=== PATIENT | female | born 1985 | race Caucasian/White ===

== ENCOUNTER → 2016-05-09 | Outpatient (CLI) | payer BC, OTHER ==
[~2016-05-09] MED LIST: MONT1TAB3 PO; PRENTAB26 PO; SUPERCREAM EXT
[2016-05-09 16:52] LABS: URINE APPEARANCE CLEAR (CLEAR); URINE BILIRUBIN NEG (NEG); URINE COLOR DK YELLOW; URINE EPITHELIAL CELL AUTO >30 /lpf (0-5); URINE NITRITE NEG (NEG); URINE SPECIFIC GRAVITY 1.024 (1.000-1.030); UROBILINOGEN NEG (NEG)
[2016-05-09 16:55] LABS: MANUAL MICROSCOPIC REQUIRED? NO; REVIEW REQ? NO
== END | disposition home or self-care (01) ==
LOC: C.LABSPEC 15:59
PROVIDERS: ATTEND Obstetrics & Gynecology
DX: Z34.00 Encounter for supervision of normal first pregnancy, unspecified trimester (principal)

== ENCOUNTER → 2016-05-13 | Outpatient (CLI) | payer OTHER ==
[2016-05-17 01:34] LABS: CHLAMYDIA TRACH RNA*** NOT DETECTED (NOT DETECTED); GC (NEIS GONORRHOEAE)RNA** NOT DETECTED (NOT DETECTED)
== END | disposition home or self-care (01) ==
LOC: C.LABSPEC 17:23
PROVIDERS: ATTEND Obstetrics & Gynecology
DX: Z34.00 Encounter for supervision of normal first pregnancy, unspecified trimester (principal)

== ENCOUNTER → 2016-05-13 | Outpatient (CLI) | payer OTHER ==
[2016-05-13 16:38] LABS: BASO % 0.3 %; BASO ABS # 0.03 K/uL (0-0.2); COMPLETE YES; EOS % 0.6 %; HEMATOCRIT 39.1 % (37-47); IG% 0.1 %; LYMPH % 20.3 %; LYMPH ABS # 2.05 K/uL (1.2-3.4); MEAN CELL VOLUME 84.6 fL (80-100); MEAN CORPUSCULAR HEMOGLOBIN 29.4 pg (25-34); MEAN CORPUSCULAR HGB CONC 34.8 g/dl (32-36); MEAN PLATELET VOLUME 9.5 fL (7.4-10.4); MONO % 7.2 %; NEUT % 71.5 %; PLATELET COUNT 237 K/uL (130-400); RED BLOOD COUNT 4.62 M/uL (4.2-5.4); WHITE BLOOD COUNT 10.09 K/uL (4.8-10.8)
== END | disposition home or self-care (01) ==
LOC: C.LAB1850 15:30
PROVIDERS: ATTEND Obstetrics & Gynecology
DX: Z34.00 Encounter for supervision of normal first pregnancy, unspecified trimester (principal)

== ENCOUNTER → 2016-06-10 | Outpatient (CLI) | payer OTHER ==
[2016-06-10 13:01] LABS: GTGD 50 Grams
[2016-06-13 18:24] LABS: AFP CONCENTRATION 26.8 NG/ML; AFPTS GESTATIONAL AGE 16.4 WEEKS; AFPTS INSULIN DEP DIABETIC? NO; AFPTS MATERNAL WT 266 LBS; ALPHA-FETOPROTEIN RACE CAUCASIAN=W; HISTORY OF NTD NO; REPEAT SAMPLE? NO
== END | disposition home or self-care (01) ==
LOC: C.LAB1850 10:09
PROVIDERS: ATTEND Obstetrics & Gynecology
DX: Z34.02 Encounter for supervision of normal first pregnancy, second trimester (principal)

== ENCOUNTER → 2016-09-02 | Outpatient (CLI) | payer OTHER ==
[2016-09-02 15:39] LABS: HEMATOCRIT 37.1 % (37-47)
[2016-09-02 16:20] LABS: URINE APPEARANCE CLEAR (CLEAR); URINE BILIRUBIN NEG (NEG); URINE COLOR YELLOW; URINE EPITHELIAL CELL AUTO >30 /lpf (0-5); URINE NITRITE NEG (NEG); URINE PH 7.5 (4.5-7.5); URINE SPECIFIC GRAVITY 1.009 (1.000-1.030); UROBILINOGEN NEG (NEG)
[2016-09-02 16:22] LABS: MANUAL MICROSCOPIC REQUIRED? NO; REVIEW REQ? NO
[2016-09-02 18:13] LABS: GTGD 50 Grams
== END | disposition home or self-care (01) ==
LOC: C.LAB1850 13:41
PROVIDERS: ATTEND Obstetrics & Gynecology
DX: Z34.02 Encounter for supervision of normal first pregnancy, second trimester (principal)

== ENCOUNTER → 2016-10-13 | Outpatient (CLI) | payer OTHER ==
[2016-10-13 13:07] LABS: BASO % 0.2 %; BASO ABS # 0.02 K/uL (0-0.2); COMPLETE YES; HEMATOCRIT 38.4 % (37-47); IG% 0.4 %; LYMPH % 21.6 %; LYMPH ABS # 2.09 K/uL (1.2-3.4); MEAN CELL VOLUME 89.1 fL (80-100); MEAN CORPUSCULAR HEMOGLOBIN 29.2 pg (25-34); MEAN CORPUSCULAR HGB CONC 32.8 g/dl (32-36); MEAN PLATELET VOLUME 9.7 fL (7.4-10.4); MONO % 6.2 %; NEUT % 70.6 %; PLATELET COUNT 198 K/uL (130-400); RED BLOOD COUNT 4.31 M/uL (4.2-5.4); WHITE BLOOD COUNT 9.67 K/uL (4.8-10.8)
[2016-10-13 13:35] LABS: ALT/SGPT 71 U/L (12-78); AST/SGOT 37 U/L (15-37); CREATININE 0.53 mg/dl (0.60-1.20); URIC ACID 4.5 mg/dl (2.6-7.2)
== END | disposition home or self-care (01) ==
LOC: C.LAB1850 12:08
PROVIDERS: ATTEND Obstetrics & Gynecology
DX: O16.9 Unspecified maternal hypertension, unspecified trimester (principal); Z3A.00 Weeks of gestation of pregnancy not specified

== ENCOUNTER → 2016-10-21 | Outpatient (CLI) | payer OTHER ==
[2016-10-21 15:33] LABS: MEAN CELL VOLUME 88.8 fL (80-100); MEAN CORPUSCULAR HEMOGLOBIN 30.4 pg (25-34); MEAN CORPUSCULAR HGB CONC 34.2 g/dl (32-36); MEAN PLATELET VOLUME 10.2 fL (7.4-10.4); PLATELET COUNT 188 K/uL (130-400); RED BLOOD COUNT 4.28 M/uL (4.2-5.4); WHITE BLOOD COUNT 11.27 K/uL (4.8-10.8)
[2016-10-21 15:42] LABS: ALT/SGPT 82 U/L (12-78); AST/SGOT 48 U/L (15-37); BLOOD UREA NITROGEN 5 mg/dl (7-18); BUN/CREATININE RATIO 9.6 (10-20); CALCIUM 8.8 mg/dl (8.5-10.1); CARBON DIOXIDE 25 mmol/L (21-32); CHLORIDE 109 mmol/L (98-107); CREATININE 0.56 mg/dl (0.60-1.20); GLUCOSE 108 mg/dl (70-99); SODIUM 140 mmol/L (136-145)
[2016-10-21 15:45] LABS: ALB/GLOB RATIO 0.6 (0.9-2); ALKALINE PHOSPHATASE 116 U/L (45-117)
== END | disposition home or self-care (01) ==
LOC: C.LAB1850 14:22
PROVIDERS: ATTEND Obstetrics & Gynecology
DX: O13.3 Gestational [pregnancy-induced] hypertension without significant proteinuria, third trimester (principal); Z3A.00 Weeks of gestation of pregnancy not specified

== ENCOUNTER → 2016-10-24 | Outpatient (CLI) | payer OTHER ==
[2016-10-24 13:03] LABS: ALT/SGPT 80 U/L (12-78); AST/SGOT 44 U/L (15-37); BLOOD UREA NITROGEN 3 mg/dl (7-18); BUN/CREATININE RATIO 5.5 (10-20); CALCIUM 8.9 mg/dl (8.5-10.1); CARBON DIOXIDE 25 mmol/L (21-32); CHLORIDE 109 mmol/L (98-107); CREATININE 0.57 mg/dl (0.60-1.20); GLUCOSE 113 mg/dl (70-99); POTASSIUM 3.7 mmol/L (3.5-5.1); SODIUM 141 mmol/L (136-145)
[2016-10-24 13:06] LABS: ALB/GLOB RATIO 0.7 (0.9-2); ALKALINE PHOSPHATASE 116 U/L (45-117)
== END | disposition home or self-care (01) ==
LOC: C.LAB1850 11:26
PROVIDERS: ATTEND Obstetrics & Gynecology
DX: O13.3 Gestational [pregnancy-induced] hypertension without significant proteinuria, third trimester (principal)

== ENCOUNTER → 2016-10-28 | Outpatient (CLI) | payer OTHER ==
[2016-10-28 16:55] LABS: ALT/SGPT 80 U/L (12-78); AST/SGOT 47 U/L (15-37); BLOOD UREA NITROGEN 5 mg/dl (7-18); BUN/CREATININE RATIO 10.4 (10-20); CALCIUM 8.6 mg/dl (8.5-10.1); CARBON DIOXIDE 25 mmol/L (21-32); CHLORIDE 108 mmol/L (98-107); CREATININE 0.51 mg/dl (0.60-1.20); GLUCOSE 93 mg/dl (70-99); POTASSIUM 3.7 mmol/L (3.5-5.1); SODIUM 141 mmol/L (136-145)
[2016-10-28 16:57] LABS: ALB/GLOB RATIO 0.7 (0.9-2); ALKALINE PHOSPHATASE 124 U/L (45-117)
== END | disposition home or self-care (01) ==
LOC: C.LAB1850 15:20
PROVIDERS: ATTEND Obstetrics & Gynecology
DX: O13.3 Gestational [pregnancy-induced] hypertension without significant proteinuria, third trimester (principal)

== ENCOUNTER → 2016-10-31 | Outpatient (CLI) | payer OTHER ==
[2016-10-31 12:17] LABS: HEMATOCRIT 37.6 % (37-47); MEAN CELL VOLUME 88.9 fL (80-100); MEAN CORPUSCULAR HEMOGLOBIN 28.8 pg (25-34); MEAN CORPUSCULAR HGB CONC 32.4 g/dl (32-36); PLATELET COUNT 193 K/uL (130-400); RED BLOOD COUNT 4.23 M/uL (4.2-5.4); WHITE BLOOD COUNT 10.88 K/uL (4.8-10.8)
== END | disposition home or self-care (01) ==
LOC: C.LAB1850 10:18
PROVIDERS: ATTEND Obstetrics & Gynecology
DX: O13.3 Gestational [pregnancy-induced] hypertension without significant proteinuria, third trimester (principal); Z3A.00 Weeks of gestation of pregnancy not specified

== ENCOUNTER 2016-11-04 02:56 | Inpatient (IN) | payer OTHER ==
[~2016-11-04] VITALS: Ht 170.2 cm; Wt 135.5 kg
[2016-11-04] MEDS ORDERED: LACTATED RINGER'S 1000ML 1,000 ML IV PRN (07:57)
[2016-11-04] MEDS ORDERED: PENICILLIN G POTASSIUM IV 6 MU in DEXTROSE 5% 250ML 250 ML IV ONE (08:00)
[2016-11-04] MEDS ORDERED: LACTATED RINGER'S 1000ML 1,000 ML IV SCH (08:30)
[2016-11-04] MEDS ORDERED: PRENTAB26 PO (08:30)
[2016-11-04] MEDS ORDERED: MONT1TAB3 PO (08:30)
[2016-11-04 08:39] VITALS: Ht 170.2 cm; Wt 135.5 kg
[2016-11-04 08:50] LABS: HEMATOCRIT 34.8 % (37-47); MEAN CELL VOLUME 87.9 fL (80-100); MEAN CORPUSCULAR HEMOGLOBIN 30.1 pg (25-34); MEAN CORPUSCULAR HGB CONC 34.2 g/dl (32-36); MEAN PLATELET VOLUME 9.7 fL (7.4-10.4); PLATELET COUNT 169 K/uL (130-400); RED BLOOD COUNT 3.96 M/uL (4.2-5.4); WHITE BLOOD COUNT 9.12 K/uL (4.8-10.8)
[2016-11-04 09:11] LABS: BUN/CREATININE RATIO 9.7 (10-20); CALCIUM 8.7 mg/dl (8.5-10.1); CREATININE 0.6 mg/dl (0.60-1.20); POTASSIUM 3.7 mmol/L (3.5-5.1)
[2016-11-04 09:12] LABS: ALB/GLOB RATIO 0.6 (0.9-2)
[2016-11-04] MEDS ORDERED: LACTATED RINGER'S 1000ML 500 ML IV PRN ×2 (09:16→14:42)
[2016-11-04] MEDS ORDERED: OXYTOCIN 30 UNITS/500ML NSS IV PRN (09:30)
[2016-11-04] MEDS: PENICILLIN G POTASSIUM IV 3 MU in DEXTROSE 5% 100ML 100 ML IV PRN ×3 (12:41→20:40)
[2016-11-04] MEDS ORDERED: EpHEDrine SULFATE INJ 50 MG/ML AMP ONE (13:52)
[2016-11-04] MEDS ORDERED: BUPIVACAINE 0.25% 30 ML VIAL ONE (13:52)
[2016-11-04] MEDS ORDERED: FENTANYL CITRATE INJ 50 MCG/1 ML 2 ML VIAL ONE (13:53)
[2016-11-04] MEDS ORDERED: FENTANYL 2MCG/ML ROPIV 1.25MG/ML 100ML BAG EPI ONE (13:53)
[2016-11-04] MEDS ORDERED: NALOXONE HCL INJ 1 MG in SODIUM CHLORIDE 0.9% 1000ML 1,000 ML IV PRN (14:42)
[2016-11-04] MEDS ORDERED: NALOXONE HCL INJ 0.4 MG/1 ML VIAL/CARP IV PRN (14:45)
[2016-11-04] MEDS ORDERED: NALBUPHINE HCL INJ 10 MG/ML AMP IV PRN (14:45)
[2016-11-04] MEDS ORDERED: EpHEDrine SULFATE INJ 50 MG/ML AMP IV PRN (14:45)
[2016-11-04] MEDS ORDERED: ONDANSETRON INJ 2 MG/ML 2 ML VIAL IV PRN (14:45)
[2016-11-04] MEDS ORDERED: DiphenhydrAMINE HCL 50 MG/ML VIAL IV PRN (14:45)
[2016-11-04] MEDS: FENTANYL 2MCG/ML ROPIV 1.25MG/ML 100ML BAG EPI PRN ×2 (21:47→22:47)
[2016-11-05] MEDS: PENICILLIN G POTASSIUM IV 3 MU in DEXTROSE 5% 100ML 100 ML IV PRN (00:29)
[2016-11-05] MEDS ORDERED: BENZOCAINE 20% AER SPR 82.5 GM CAN EXT PRN (02:00)
[2016-11-05] MEDS ORDERED: SUPERCREAM 0.870 % 15GM JAR EXT PRN (02:00)
[2016-11-05] MEDS ORDERED: OXYCODONE/ACETAMINOPHEN 5-325 TAB PO PRN (02:00)
[2016-11-05] MEDS ORDERED: HYDROCORTISONE ACETATE 25 MG SUPP PR PRN (02:00)
[2016-11-05] MEDS ORDERED: OXYTOCIN 30 UNITS/500ML NSS IV PRN (02:00)
[2016-11-05] MEDS ORDERED: LANOLIN OINT EXT PRN ×2 (02:00)
[2016-11-05] MEDS: IBUPROFEN 600 MG TAB PO PRN ×5 (02:56→20:51)
--- NOTE | 2016-11-05 03:14 | DELIVERY SUMMARY ---
DATE OF OPERATION: 11/05/2016 DELIVERING SURGEON: Diane Shukla DO PREDELIVERY DIAGNOSES: 1. A 31-year-old 1, para 0 at 37 weeks 3 days. 2. Induction of labor secondary to gestational hypertension. 3. Group B streptococcus positive. 4. Morbid obesity. 5. Polycystic ovary syndrome. POSTDELIVERY DIAGNOSES: Same. PROCEDURE: Spontaneous vaginal delivery and repair of second degree perineal laceration. ANESTHESIA: Epidural. ESTIMATED BLOOD LOSS: 300 mL. FINDINGS: Viable female with Apgars 9 and 9, weight pending. Please see nursery records. DESCRIPTION OF DELIVERY: The patient progressed to complete with epidural anesthesia, she then began to push. She spontaneously vaginally delivered a viable female from the cephalic presentation in left occiput anterior position. The head delivered followed by the anterior and posterior shoulders simultaneously. The baby was placed in mother's abdomen. The cord was doubly clamped and cut. Cord blood was obtained for public cord blood banking. The placenta was then delivered spontaneously intact with a 3-vessel cord. Pitocin was given and the uterus and vagina were swept of all clots and debris. The uterus became firm. The cervix, vagina and perineum were inspected and a second degree laceration was noted, this was repaired in standard fashion with 3-0 Vicryl. The anal sphincter was not entered; however, the surrounding tissue was traumatized, therefore I placed a single [id number] stitch of 3-0 chromic to support the anal sphincter. The patient and baby tolerated the procedure well. Excellent hemostasis was observed. Sponge, instrument and needle counts were correct x2 at the conclusion of the delivery. I attest to the content of the Intraoperative Record and any orders documented therein. Any exception s are noted below.
[2016-11-05 03:30] VITALS: BP 137/70; PULSE 97; TEMP 37.3
--- NOTE | 2016-11-05 04:01 | Anesthesia Procedure Note ---
Anesthesia Epidural Removal Nt Date & Time Nov 05, 2016 at 04:01 Vital Signs Pain Intensity: 6.0 Notes Mental Status: alert / awake / arousable, participated in evaluation Nausea / Vomiting: adequately controlled Pain: adequately controlled Airway Patency, RR, SpO2: stable & adequate BP & HR: stable & adequate Hydration State: stable & adequate Neuraxial Anesthesia: was administered, sensory block is resolving Anesthetic Complications: no major complications apparent, pt satisfied with anesthetic care Epidural: removed without complications, with tip intact
[2016-11-05 08:00] VITALS: BP 109/72; PULSE 91; TEMP 36.6
[2016-11-05] MEDS: DOCUSATE SODIUM 100 MG CAP PO SCH ×2 (08:23→20:49)
[2016-11-05] MEDS: ACETAMINOPHEN 325 MG TAB PO PRN ×3 (10:14→19:07)
[2016-11-05 12:18] VITALS: BP 125/85; PULSE 85; TEMP 36.7
[2016-11-05 15:30] VITALS: BP 121/83; PULSE 90; TEMP 36.5
[2016-11-05 19:30] VITALS: BP 128/86; PULSE 90; TEMP 36.4
[2016-11-05 23:00] VITALS: BP 106/71; PULSE 91; TEMP 36.7
[2016-11-06] MEDS: IBUPROFEN 600 MG TAB PO PRN ×4 (03:55→17:45)
[2016-11-06] MEDS: ACETAMINOPHEN 325 MG TAB PO PRN ×4 (03:57→19:52)
[2016-11-06 06:40] LABS: HEMATOCRIT 31.5 % (37-47)
[2016-11-06 07:50] VITALS: BP 113/78; PULSE 96; TEMP 36.7
[2016-11-06] MEDS: DOCUSATE SODIUM 100 MG CAP PO SCH ×2 (07:59→19:31)
--- NOTE | 2016-11-06 08:20 | Progress Note ---
Subjective Nov 06, 2016. Subjective conversation w/ patient, physical exam, chart review, lab review Ambulation: ambulating normally Voiding: no voiding problems Diet Tolerance: Regular Diet Lochia: Small Feeding Type: Breast Feeding Objective Vital Signs Date Time Temp Pulse Resp B/P (MAP) Pulse Ox O2 Delivery O2 Flow Rate FiO2 11/05/16 23:00 36.7 91 18 106/71 (83) Room Air 11/05/16 23:00 Room Air 11/05/16 19:30 36.4 90 20 128/86 (100) Room Air 11/05/16 15:30 Room Air 11/05/16 15:30 36.5 90 20 121/83 (96) Room Air 11/05/16 12:18 36.7 85 20 125/85 (98) Physical Exam General Appearance: WELL-APPEARING Abdomen: non tender Fundus: Firm Extremities: no calf tenderness Laboratory Results Last 24 Hours Test 11/06/16 06:25 Hemoglobin 10.5 g/dL Hematocrit 31.5 % Assessment and Plan Post- Day#: 1 Continue Routine Care: BENJAMIN
--- NOTE | 2016-11-06 08:36 | Discharge Instructions ---
Discharge Instructions Date of Service Nov 06, 2016. Admission Reason for Admission: Induction Discharge Discharge Diagnosis / Problem: Discharge Goals Goal(s): Routine recovery after delivery Activity Recommendations Activity Limitations: per Instructions/Follow-up section . Instructions / Follow-Up Instructions / Follow-Up ACTIVITY RECOMMENDATIONS: * Gradual return to full activity over the next 2-3 weeks. * No lifting - nothing heavier than baby over the next 2-3 weeks. * Do not engage in vigorous exercise, sexual activity or sports until cleared by your physician. * Do not drive or operate any motorized equipment until cleared by your physician. * You may shower/bathe daily. MEDICATIONS: For discomfort or pain, you may use Acetaminophen (Tylenol), Ibuprofen (Advil), or Naproxen (Aleve) following the package directions. For constipation you may use Colace following the package directions. BREAST CARE: If you are not breast feeding: * Wear a supportive bra 24 hours a day for one to two weeks. * Avoid stimulating your breasts and nipples as much as possible during the first few weeks after delivery. * When taking a shower, have the warm water hit your back, not breasts. * When your breasts feel full, apply ice packs. Usually three to four times a day helps ease the discomfort. * Take a mild pain medication (Tylenol / Motrin) when you are uncomfortable. If breast feeding: * Use breast milk to lubricate nipples. Lansinoh cream may be used for sore nipples. You do not need to remove cream prior to breast feeding. If using a different brand of cream, check the label for directions regarding removal of cream prior to nursing. * Wear a supportive bra. * If having problems with breasts or breast feeding, call a it architecture consultant or your health care provider. EPISIOTOMY CARE: After delivery, if you have an episiotomy (stitches), the following steps will ease discomfort and aid healing. * For the first 24 hours after delivery, place ice packs next to your episiotomy to help reduce swelling. * After the first 24 hour-period, sitz baths, either portable or in the tub, are suggested. A shower with a shower arm sprayed over the episiotomy may be comforting. * Blanca care should be done after each voiding and bowel movement. Squirt warm water from a plastic bottle over the perineum (region of the body between the anus and urinary opening) and pat dry. * Use Dermoplast to ease discomfort. Shake container. [place] directly over the episiotomy. Place a Tucks on a clean sanitary pad next to your episiotomy. SPECIAL CARE INSTRUCTIONS: When you are discharged from the hospital, it is important for you to follow the instructions listed below: * During the first week at home, you should be able to care for yourself and your baby. In addition, the usual light household activities are encouraged. * Limit your activities to the way you feel. Do not try to clean the house or move furniture. Be sensible. * If you actively engage in sports and have done so up until the time of your delivery, you may resume these activities as soon as you feel able. This may take up to one month or even longer. Use good judgment. * Continue to take your vitamins for at least six weeks after the of your baby. * Your diet need not be limited unless you were on a special diet before your delivery. Breast-feeding mothers need around 2500 calories per day and at least 64-80 ounces of fluid per day (8 to 10 glasses). * You should eat foods from the four major food groups. Crash diets or fad diets are to be avoided. Eating lean meats, fresh fruits and vegetables, low-fat dairy products, high fiber foods and a regular exercise program, will help you get back to your pre- weight without putting your health at risk. * Constipation is sometimes a problem after delivery. Take a mild laxative as needed. If breast feeding, Milk of Magnesia is acceptable to use. You may use a suppository or Fleets enema if no episiotomy. * A daily shower or tub bath is suggested. Be sure to thoroughly and gently dry the perineum. * A bloody vaginal discharge will usually continue until around four weeks post . A small amount of bleeding may continue for as long as six weeks. Vaginal discharge changes from the bright red bleeding after delivery to pink then brownish and finally yellowish-pink before becoming white and disappearing. * Bleeding may increase with activity. Your first period may come in 4-8 weeks. If you are breast feeding, your period may be delayed even longer. * [place] (sex) can begin whenever both you and your partner feel comfortable and do not have any form of genital infection. It is recommended that you wait at least six weeks for internal and external healing to occur. If you have questions, please talk to your health care practitioner. A condom should be used to prevent infection and . * Foreplay, gentle intercourse and lubrication is very important the first several times to prevent pain. A water-based lubricant such as K-Y jelly or Astroglide may be used. * If you have RH negative blood and your baby is RH positive, you will receive RHOGAM by injection prior to discharge. The nurse will give you a card to keep with you that has the date and place that you received RHOGAM after delivery. * During your care, you had a Rubella screen done to check for the presence of rubella antibodies in your blood. If your test was negative, you will receive a Rubella vaccine prior to discharge. This vaccine may cause a fever, soreness at the injection site and flu-like symptoms. If these symptoms persist, notify your health care practitioner. is not advised for one month after a Rubella vaccine. * Verbalizes understanding of car seat law as reviewed with patient nursing. * Car Seat hand-out given and reviewed with patient by nursing. * Shaken baby information reviewed with patient by nursing. Call you doctor if: * Heavy bleeding (saturating several pads an hour) or passing clots the size of your fist. * A fever >101 degrees F (38.3 degrees C) on two occasions four hours apart and /or chills. * Unusual pain in the pelvic or vaginal areas. * "Baby Blues" lasting longer than two weeks. If you have any questions or concerns, call your health care practitioner at . FOLLOW UP VISIT: * Please call the office at to schedule a 6 week examination. It is important you keep this appointment. It is important for you to make arrangements for either yearly or twice yearly check-ups thereafter. Current Hospital Diet Patient's current hospital diet: Regular OB Diet Discharge Diet Recommended Diet: Regular OB Diet Pending Studies Studies pending at discharge: no Medical Emergencies . Who to Call and When: Medical Emergencies: If at any time you feel your situation is an emergency, please call 911 immediately. . Non-Emergent Contact Non-Emergency issues call your: Research Intern . . "Provider Documentation" section prepared by Jordy Thapa. . VTE Core Measure Inpt VTE Proph given/why not?: Treatment not indicated
[2016-11-06 12:45] VITALS: BP 133/83; PULSE 96; TEMP 36.7
[2016-11-06 15:15] VITALS: BP 116/63; PULSE 91; TEMP 36.7
[2016-11-06 19:30] VITALS: BP 133/88; PULSE 94; TEMP 37.3
[2016-11-06] MEDS ORDERED: BISACODYL 5 MG TABEC PO SCH (20:00)
[2016-11-06 23:15] VITALS: BP 116/81; PULSE 82; TEMP 36.6; O2SAT 98
[2016-11-07] MEDS: IBUPROFEN 600 MG TAB PO PRN ×2 (01:43→08:24)
[2016-11-07] MEDS: ACETAMINOPHEN 325 MG TAB PO PRN (05:11)
--- NOTE | 2016-11-07 06:04 | OB/GYN Progress Note ---
[employer] Progress Note Date of Service Nov 07, 2016. Subjective conversation w/ patient, physical exam, chart review Ambulation: ambulating normally Voiding: no voiding problems Diet Tolerance: Regular Diet Lochia: Small Feeding Type: Breast Feeding Pain: 2/10 controlled with pain meds Review of Systems Constitutional: No fever Respiratory: No shortness of breath Cardiac: No chest pain Abdomen: No nausea, No vomiting Female : No dysuria Objective Vital Signs Date Time Temp Pulse Resp B/P (MAP) Pulse Ox O2 Delivery O2 Flow Rate FiO2 11/06/16 23:15 98 Room Air 11/06/16 23:15 36.6 82 18 116/81 (93) 98 Room Air 11/06/16 19:30 37.3 94 18 133/88 (103) Room Air 11/06/16 15:15 Room Air 11/06/16 15:15 36.7 91 18 116/63 (80) Room Air 11/06/16 12:45 36.7 96 16 133/83 (100) 11/06/16 07:50 36.7 96 20 113/78 (90) Physical Exam General Appearance: WELL-APPEARING Respiratory/Chest: lungs clear, normal breath sounds, no respiratory distress Cardiovascular: regular rate, rhythm Abdomen: normal bowel sounds, non tender, soft Fundus: Firm, Relation to Umbilicus (1 finger breaths below) Extremities: non-tender, + pedal edema (1+) Laboratory Results Last 24 Hours Test 11/06/16 06:25 Hemoglobin 10.5 g/dL Hematocrit 31.5 % Medications Current Inpatient Medications Medications (Trade) Dose Ordered Sig/Kacy Route Start Time Stop Time Status Last Admin Dose Admin Oxytocin (Pitocin IV) 30 units UD PRN IV 11/05/16 02:00 12/05/16 01:59 Benzocaine (Dermoplast Aero Spr) 1 appln PRN PRN EXT 11/05/16 02:00 12/05/16 01:59 11/05/16 10:10 1 APPLN Cocaine HCl (Supercream 0.870% Cr) BID PRN EXT 11/05/16 02:00 11/19/16 01:59 11/05/16 16:27 15 GM Hydrocortisone Acetate (Anusol Hc Supp) 25 mg BID PRN ME 11/05/16 02:00 12/05/16 01:59 Lanolin (Lanolin Oint) PRN PRN EXT 11/05/16 02:00 12/05/16 01:59 11/05/16 21:04 1 TUBE Ibuprofen (Motrin Tab) 600 mg Q4H PRN PO 11/05/16 02:00 12/05/16 01:59 11/07/16 01:43 600 MG Oxycodone/ Acetaminophen (Percocet 5-325mg Tab) 1 tab Q4H PRN PO 11/05/16 02:00 11/19/16 01:59 11/05/16 04:31 1 TAB Docusate Sodium (coLACE CAP) 100 mg BID PO 11/05/16 08:00 12/05/16 07:59 11/06/16 19:31 100 MG Acetaminophen (Tylenol Tab) 650 mg Q6H PRN PO 11/05/16 09:30 12/05/16 09:29 11/07/16 05:11 650 MG Assessment and Plan Post- Day Number: 2 Continue Routine Care: A/P: This is a 31 y/o female, , PPD#2 s/p induced normal vaginal delivery. She is ambulating and clinically stable to discharge. - Vital signs are reviewed and WNL (Tmax 36.7) - Last Hgb 10.5 (11/06) - Blood type A+, GBS pos, Rubella Immune - No signs of depression. - Routine care - Discussed resting, feeding, pain control, mastitis, control, follow up in 6 weeks and reasons to call sooner, if necessary. - Continue with pain medication as needed, and continue vitamins. - Encourage breast feeding and educate about breast feeding - Patient understands and keen for home. - Plan to discharge home Resident Physician Supervision Note: I interviewed and examined the patient. Discussed with Dr. Nix and agree with findings and plan as documented in the note. Any exceptions or clarifications are listed here: [None] Documented By: Jordy Thapa Resident Involvement: Resident Care Provided Care Provided: OB Delivery
[2016-11-07] MEDS ORDERED: SUPERCREAM EXT (07:36)
[2016-11-07 07:44] VITALS: BP 120/77; PULSE 82; TEMP 36.5; O2SAT 99
[2016-11-07] MEDS ORDERED: SUPERCREAM 0.870 % 15GM JAR EXT PRN (07:45)
[2016-11-07] MEDS: DOCUSATE SODIUM 100 MG CAP PO SCH (08:23)
== END 2016-11-07 13:15 | disposition home or self-care (01) | DRG 775 ==
LOC: C.LD 07:44 → C.OBG 11-05 03:57
PROVIDERS: ADMIT Obstetrics & Gynecology; ATTEND Obstetrics & Gynecology
PROC: 4A1HXFZ Monitoring of Products of Conception, Cardiac Rhythm, External Approach (ICD-10-PCS; principal; 2016-11-05)
PROC: 10E0XZZ Delivery of Products of Conception, External Approach (ICD-10-PCS; principal; 2016-11-05)
PROC: 0KQM0ZZ Repair Perineum Muscle, Open Approach (ICD-10-PCS; principal; 2016-11-05)
DX: O13.4 Gestational [pregnancy-induced] hypertension without significant proteinuria, complicating childbirth (principal); Z68.42 Body mass index [BMI] 45.0-49.9, adult; O99.213 Obesity complicating pregnancy, third trimester; E66.01 Morbid (severe) obesity due to excess calories; O99.824 Streptococcus B carrier state complicating childbirth; O99.89 Other specified diseases and conditions complicating pregnancy, childbirth and the puerperium; O34.83 Maternal care for other abnormalities of pelvic organs, third trimester; E28.2 Polycystic ovarian syndrome; J30.2 Other seasonal allergic rhinitis; O70.1 Second degree perineal laceration during delivery; Z3A.37 37 weeks gestation of pregnancy; Z37.0 Single live birth

== ENCOUNTER → 2016-12-22 | Outpatient (CLI) | payer OTHER | END | disposition home or self-care (01) | LOC: C.PAPS 14:26 | PROVIDERS: ATTEND Obstetrics & Gynecology | DX: Z39.2 Encounter for routine postpartum follow-up (principal) ==

== ENCOUNTER 2017-08-25 07:55 | Emergency (ER) | payer OTHER ==
[~2017-08-25] VITALS: Ht 170.2 cm; Wt 126.4 kg
[2017-08-25 08:04] VITALS: TEMP 37.2; Ht 170.2 cm; Wt 126.4 kg
[2017-08-25] MEDS ORDERED: PROPARACAINE HCL 0.5% OP SOLN 15 ML BTL ONE (08:11)
[2017-08-25] MEDS ORDERED: CIPROFLOXACIN HCL 0.3% OP SOLN 2.5 ML BTL OP ONE (09:00)
[2017-08-25 09:05] VITALS: BP 139/98; PULSE 90; O2SAT 100
--- NOTE | 2017-08-25 09:07 | EMERGENCY ROOM VISIT NOTE ---
ED Visit Note First contact with patient: 08:07 CHIEF COMPLAINT: Right eye redness, swelling and discharge since yesterday afternoon HISTORY OF PRESENT ILLNESS: Patient is a 32-year-old female who presents emergency department accompanied by her for evaluation of pain, swelling and redness in the right eye. Her symptoms started yesterday mid morning, about 24 hours ago. She noted some drainage from the eye. She called her doctor's office and was called in a prescription for sulfacetamide drops which she has been taking with no relief. She notes increasing eye redness, drainage and discharge. Her eye was matted shut this morning. She also notes some swelling of the eyelids and into her cheek. She thought that the symptoms worsening were related to an allergic reaction to the eyedrop, so she stopped using them, and took Benadryl. She denies any other upper respiratory symptoms including cough, nasal drainage or sore throat. She does note some slight blurry vision and sensitivity to light in the right eye only. She has a mild throbbing headache around her right eye. She rates her discomfort a 3/10. She does not wear glasses or contact lenses. She does have a 9-month-old daughter in daycare, but there is no one ill with similar symptoms that she is aware of. REVIEW OF SYSTEMS: Review of systems as per HPI. All other systems reviewed were negative. 10 systems reviewed. PMH: Electronic medical records are reviewed and summarized as above/below. See Problem List. SOCIAL HISTORY: Patient lives at home with her family. Non-smoker. PHYSICAL EXAM: Vital Signs: Reviewed Nurse's notes. VISUAL ACUITY: 20/20 in the right eye, 20/15 in the left eye without correction. SKIN: Warm, dry. No cyanosis. No petechia. EYE(S): Both pupils equal and reactive, EOMs full. Examination of the right eye notes severe conjunctival injection with chemosis, and mucopurulent drainage is present. She has some mild soft tissue swelling of the right upper eyelid, and some fullness in the soft tissue inferior to the right eye, but no overt discoloration, increased warmth, induration or cellulitic changes. Slit- lamp examination did not note any hyphema or foreign body on the cornea. No uptake of fluorescein visible with UV light. ENT: Tympanic membranes intact, with normal landmarks. External canals are clear. Oral and nasopharynx are clear. Mucous membranes are moist. NECK: No lymphadenopathy noted. EMERGENCY DEPARTMENT COURSE: The patient was seen and assessed as above. She has a fairly significant right-sided conjunctivitis. She has some soft tissue swelling in the periorbital space, but exam is not consistent with a preseptal or a periorbital cellulitis. I suspect an infectious source, however there could be an allergic response to the eyedrop as well. Nonetheless, she will discontinue the sulfacetamide drops, and be placed on Ciloxan which were instilled in the emergency department. Continued conservative care measures were discussed. The patient was educated on the worrisome signs or symptoms for which she should return to the emergency department for further evaluation. She expressed understanding of this and was agreeable. She is discharged home with her in good condition. Medication reconciliation: I attest that I have personally reviewed the patient' s current medication list. Blood pressure screening: Patient was found to have a slightly elevated blood pressure due to circumstances. I do not believe that the patient requires hypertension monitoring. Problem List Medical Problems: (1) 37 weeks gestation of Status: Resolved (2) Asthma Status: Chronic (3) Gestational hypertension Status: Resolved (4) Polycystic Ovarian Syndrome Status: Chronic Current/Historical Medications Scheduled Ciprofloxacin Hcl (Ophth) (Ciloxan Oph), 2 DROP OPR Q4H Fexofenadine-Pseudoephedrine (Sherin-D 24 Hour Allergy), 1 TAB PO DAILY Montelukast Sodium (Singulair), 1 TAB PO DAILY Scheduled PRN Albuterol Hfa (Ventolin Hfa), 2-4 PUFFS INH Q6H PRN for SOB/Wheezing Allergies Coded Allergies: Molds and Smuts (Verified Allergy, Severe, itchiness, 08/25/17) POLLEN (Verified Allergy, Severe, itchiness, 08/25/17) Sulfacetamide (Unverified Allergy, Severe, SWELLING OF EYE, 08/25/17) *THIS WAS AN EYE DROP* Tree Extract (Verified Allergy, Severe, itchiness, 08/25/17) Animal Dander (Verified Allergy, Intermediate, itchiness, 08/25/17) Cantaloupe (Verified Allergy, Intermediate, ANAPHYLAXIS, 08/25/17) throat itching/swelling Honeydew [place] (Verified Allergy, Intermediate, ANAPHYLAXIS, 08/25/17) throat itching/swelling Watermelon (Verified Allergy, Intermediate, ANAPHYLAXIS, 08/25/17) throat itching/swelling Vital Signs Date Time Temp Pulse Resp B/P (MAP) Pulse Ox O2 Delivery O2 Flow Rate FiO2 08/25/17 09:05 90 20 139/98 100 08/25/17 08:04 37.2 94 20 151/99 98 Room Air Medications Administered Medications (Trade) Dose Ordered Sig/Kacy Route Start Time Stop Time Status Last Admin Dose Admin Proparacaine HCl (Alcaine 0.5% Oph Soln) 225 drops STK-MED ONCE .ROUTE 08/25/17 08:11 08/25/17 08:12 DC 08/25/17 08:11 225 DROPS Ciprofloxacin HCl (Ciprofloxacin 0.3% Op Soln) 2 drops Q4H ONCE OP 08/25/17 09:00 08/25/17 09:03 DC 08/25/17 09:15 2 DROPS Departure Information Impression Primary Impression: Acute conjunctivitis, right eye Prescriptions Ciprofloxacin Hcl (Ophth) (CILOXAN OPH) 0.3 % Selam 2 DROP OPR Q4H, #1 BTL Prov: Vicky Jarvis PA 08/25/17 Referrals No Doctor, Assigned (PCP) Patient Instructions My [facility] Additional Instructions Ciloxin drops : 2 antibiotic eyedrops in the right eye every 2 hours while awake for 24 hours, then every 4 hours while awake for a total of 5-7 days. Ibuprofen(Motrin, Advil) may be used for fever or pain. Use 600mg every six hours as needed. Take with food. Avoid using more than 2400mg in a 24 hour period. Do not use 2400mg per day for more than three consecutive days without physician direction. Prolonged inappropriate use can lead to stomach upset or ulcers. (AND/OR) Acetaminophen(Tylenol) may be used for fever or pain. Use 1000mg every six hours as needed. Avoid using more than 3000mg in a 24 hour period. You may also intermittently apply a cool compress for relief. Warm washcloth for crusting and matting. Return to the ED for worsening pain, increasing redness/facial swelling, fevers , vomiting or changes in vision.
[2017-08-25] MEDS ORDERED: VNTHFA/IN INH (09:10)
[2017-08-25] MEDS ORDERED: FEXO1TAB58 PO (09:10)
[2017-08-25] MEDS ORDERED: CIPR0.3S OPR (09:19)
== END 2017-08-25 09:20 | disposition home or self-care (01) ==
LOC: C.EDB 07:58
DX: H10.31 Unspecified acute conjunctivitis, right eye (principal); J45.909 Unspecified asthma, uncomplicated; E28.2 Polycystic ovarian syndrome; Z91.018 Allergy to other foods

== ENCOUNTER 2018-10-25 14:22 | Inpatient (IN) ==
--- OUTSIDE RECORDS SUMMARY | 2018-10-25 14:25 | External Medical Summary | Continuity of Care Document ---
:1985 Author Name Brandie Vincent, Provider Address Unavailable Unavailable , Care Team Providers Name Role Phone Unavailable Unavailable Unavailable PCP, NO Unavailable Unavailable Unavailable Unavailable Unavailable Problems Chronic allergic conjunctivitis (372.14) (H10.45) Allergic rhinitis (477.9) (J30.9) Polycystic ovarian syndrome (256.4) (E28.2) Encounter for supervision of normal preg johnny in multigravida in third trimester (V22.1) (Z34.83) Obesity affecting in third trimester (649.13) (O99 .213) Nausea and vomiting in (643.90) (O21.9) GBS (group B streptococcus) UTI complicating (646. 60) (O23.40) Morbid obesity (278.01) (E66.01) History of gestational hypertension (V13.29) (Z87.59) Allergies and Adverse Reactions Sulfa Drugs (Allergy) Animal dander (Allergy) Animal dander - Cats (Allergy) Mold (Allergy) Pollen (Allergy) Trees (Allergy) Medications TABS , M.D. Refills: 0 Aspirin 81 MG TABS , M.D. Refills: 0 Singulair TABS , M.D. Refills: 0 Procedures History of Tonsillectomy With Adenoidectomy Status: Completed History of Oral Surgery Tooth Extraction Status: Completed Immunizations Influenza On: 13-Apr-2012 13:44 Lot #: [id number], [employer] Tdap (Adacel) On: 16-Sep-2016 11:13 Lot #: [id number], [employer] PA[employer]UR Influenza On: 31-Jan-2018 Tdap (Adacel) On: 28-Aug-2018 10:51 Lot #: [id number], [employer] PA[employer]UR Family History Unknown Family Member Family history of Allergic Rhinitis Status: Active Comm ents: Family History Mother Family history of lung cancer (V16.1) (Z80.1) Status: Active Grandmother Family history of malignant neoplasm of breast (V16.3) (Z80. 3) Status: Active Plan of Treatment Planned Observations Planned Goals not documented Results No Known Results Results not documented Vital Signs 18-Oct-2018 15:06 Systolic 138 mm[Hg] Diastolic 84 mm[Hg] Height 67 in BMI Calculated 46.24 kg/m2 Weight 295.2 lb BSA Calculated 2.39 m2 08-Oct-2018 11:11 Systolic 136 mm[Hg] Diastolic 78 mm[Hg] Height 67 in BMI Calculated 45.67 kg/m2 Weight 291.6 lb BSA Calculated 2.37 m2 26-Sep-2018 11:20 Systolic 136 mm[Hg] Diastolic 78 mm[Hg] Height 67 in BMI Calculated 45.83 kg/m2 Weight 292.6 lb BSA Calculated 2.38 m2 Encounters Appointment; Katy Glass M.D. 18-Oct-2018 15:10 Encounter Diagnosis: Problem not documented Appointment; Diane Shukla DO 08-Oct-2018 11:00 Encounter Diagnosis: Problem not documented Appointment; Elizabeth Valladares M.D. 26-Sep-2018 11:50 Encounter Diagnosis: Problem not documented Appointment; OBGYN SC2, Ultrasound 26-Sep-2018 11:00 Encounter Diagnosis: Problem not documented Appointment; Augie Thapa M.D. 10-Sep-2018 9:50 Encounter Diagnosis: Problem not documented Appointment; Hima Mchugh M.D. 28-Aug-2018 10:30 Encounter Diagnosis: Problem not documented Appointment; Augie Thapa M.D. 30-Jul-2018 10:20 Encounter Diagnosis: Problem not documented Appointment; OBGYN SC2, Ultrasound 30-Jul-2018 9:30 Encounter Diagnosis: Problem not documented Appointment; Ye Nugent M.D. 02-Jul-2018 10:30 Encounter Diagnosis: Problem not documented Appointment; OBGYN SC2, Ultrasound 02-Jul-2018 9:30 Encounter Diagnosis: Problem not documented Appointment; Diane Shukla DO 31-May-2018 15:30 Encounter Diagnosis: Problem not documented Appointment; Isabel Madison M.D. 11-May-2018 9:00 Encounter Diagnosis: Problem not documented Appointment; OB SC1, Procedure Rm 09-Apr-2018 8:20 Encounter Diagnosis: Problem not documented Appointment; Isabel Madison M.D. 09-Apr-2018 8:20 Encounter Diagnosis: Problem not documented Appointment; OB SC1, Nursing Station 06-Apr-2018 8:45 Encounter Diagnosis: Problem not documented Appointment; Diane Shukla DO 22-Dec-2016 11:20 Encounter Diagnosis: Problem not documented Appointment; Diane Shukla DO 03-Nov-2016 15:30 Encounter Diagnosis: Problem not documented Appointment; OB SC1, Nonstress Test 03-Nov-2016 15:00 Encounter Diagnosis: Problem not documented Appointment; OB SC1, Nonstress Test 31-Oct-2016 8:30 Encounter Diagnosis: Problem not documented Appointment; Elizabeth Valladares M.D. 28-Oct-2016 14:20 Encounter Diagnosis: Problem not documented Appointment; OB SC1, Nonstress Test 28-Oct-2016 13:50 Encounter Diagnosis: Problem not documented Appointment; OB SC1, Nonstress Test 25-Oct-2016 15:30 Encounter Diagnosis: Problem not documented
[2018-10-25] MEDS ORDERED: OXYTOCIN 30 UNITS/500 ML BAG IV PRN ×2 (15:08→20:43)
[2018-10-25] MEDS ORDERED: PENICILLIN G POTASSIUM 3 MU in DEXTROSE 5% 100 ML IV PRN (15:08)
[2018-10-25] MEDS ORDERED: LACTATED RINGER'S 1,000 ML IV PRN (15:08)
[2018-10-25 15:30] LABS: Hematocrit (blood only) 35.1 % (37-47); Hemoglobin 11.7 g/dL (12.0-16.0); Mean Corpuscular Volume 84.8 fL (80-100); Mean Platelet Volume 9.4 fL (7.4-10.4); Platelet Count 170 K/uL (130-400); RDW Coefficient of Variation 13.7 % (11.5-14.5); RDW Standard Deviation 42.2 fL (36.4-46.3); Red Blood Count 4.14 M/uL (4.2-5.4); White Blood Count 11.42 K/uL (4.8-10.8)
[2018-10-25] MEDS ORDERED: PENICILLIN G POTASSIUM 6 MU in DEXTROSE 5% 250 ML IV ONE (15:30)
[2018-10-25] MEDS ORDERED: BUPIVACAINE 0.25% 30 ML VIAL ONE (15:35)
[2018-10-25] MEDS ORDERED: ePHEDrine sulfate 50 MG/ML AMP ONE (15:35)
[2018-10-25 15:36] LABS: Mean Corpuscular Hgb Conc 33.3 g/dL (32-36)
[2018-10-25] MEDS ORDERED: fentaNYL 2MCG/ML ROPIV 1.25MG/ML 100 ML BAG EPI ONE (15:36)
[2018-10-25] MEDS ORDERED: fentaNYL citrate 100 MCG/2 ML VIAL ONE (15:36)
[2018-10-25] MEDS ORDERED: NALOXONE HCL 1 MG in SODIUM CHLORIDE 0.9% 1000ML 1,000 ML IV PRN (16:39)
[2018-10-25] MEDS ORDERED: fentaNYL 2MCG/ML ROPIV 1.25MG/ML 100 ML BAG EPI PRN (16:39)
[2018-10-25] MEDS ORDERED: NALBUPHINE HCL INJ 10 MG/ML AMP IV PRN (16:39)
[2018-10-25] MEDS ORDERED: NALOXONE HCL 0.4 MG/1 ML VIAL/CARP IV PRN (16:39)
[2018-10-25] MEDS ORDERED: ePHEDrine sulfate 50 MG/ML AMP IV PRN (16:39)
[2018-10-25] MEDS ORDERED: DiphenhydrAMINE HCL 50 MG/ML VIAL IV PRN (16:39)
--- NOTE | 2018-10-25 16:39 | Anesthesiology Consultation ---
Date of Service October 25, 2018 Assessment & Plan Chart Review Chart Review: Acceptable Risk for Labor Epidural Consults Requested none History Height/Weight Height: 5 ft 7 in Weight: 133.81 kg Allergies Allergy/AdvReac Type Severity Reaction Status Date / Time mold Allergy Severe itchiness Verified 08/25/17 09:04 pollen extracts Allergy Severe itchiness Verified 08/25/17 09:04 sulfacetamide Allergy Severe SWELLING Unverified 08/25/17 09:04 OF EYE animal dander Allergy Intermediate itchiness Verified 08/25/17 09:04 watermelon Allergy Intermediate ANAPHYLAXIS Verified 08/25/17 09:04 Tree Extract Allergy Severe itchiness Uncoded 08/25/17 09:04 Cantaloupe Allergy Intermediate ANAPHYLAXIS Uncoded 08/25/17 09:04 Honeydew Warren Allergy Intermediate ANAPHYLAXIS Uncoded 08/25/17 09:04 Medications Home Medications Medication Instructions Recorded Confirmed Last Taken vit-iron fum-folic ac 1 tab PO DAILY 10/25/18 10/25/18 10/25/18 10:00 [ Vitamin] Active Medications Generic Name Dose Route Start Last Admin Trade Name Tjq PRN Reason Stop Dose Admin Lactated Ringer's 1,000 mls @ 125 mls/hr 10/25/18 15:08 10/25/18 15:22 Lr IV 10/27/18 15:07 125 mls/hr .Q8H PRN Administration L&D Protocol Protocol Past Medical History Medical History H/O wisdom tooth extraction Morbid obesity PCOS (polycystic ovarian syndrome) Past Surgical History Surgical History History of tonsillectomy and adenoidectomy Social History Smoking Status: Never smoker Hx Alcohol Use: No Hx Substance Use: No Physical Exam Vital Signs Last Vital Signs Temp 36.9 C 10/25/18 16:04 Pulse 99 H 10/25/18 16:36 Resp 20 10/25/18 16:04 BP 120/77 10/25/18 16:04 Pulse Ox 99 10/25/18 16:36 Testing Laboratory Results 10/25/18 15:23
--- NOTE | 2018-10-25 17:39 | Labor Progress Brief Note ---
Date of Service October 25, 2018 Subjective Reason For Note: Routine Evaluation Comfortable with Epidural Assessment & Plan (1) 37 weeks gestation of : cont curr mgmt. Physical Exam Genitourinary: Manual OB Exam: + cervical dilation 6 cm, + cervical effacement 90%, + station -1 and + amniotic fluid clear OB Exam Monitor Tracing: + category I Results & Data Vital Signs (Past 12 Hours) Vital Signs Temp Pulse Resp BP Pulse Ox 10/25/18 17:35 218 H 125/68 100 10/25/18 17:30 109 H 117/65 99 10/25/18 17:25 101 H 108/57 L 99 10/25/18 17:23 112 H 105/60 10/25/18 17:21 100 H 104/59 L 10/25/18 17:20 120 H 20 99 10/25/18 17:19 108 H 105/58 L 10/25/18 17:17 103 H 111/59 L 10/25/18 17:15 106 H 111/59 L 100 10/25/18 17:13 101 H 112/59 L 10/25/18 17:11 109 H 20 106/62 10/25/18 17:10 102 H 99 10/25/18 17:09 108 H 102/57 L 10/25/18 17:08 22 10/25/18 17:07 100 H 103/64 10/25/18 17:05 98 H 99 10/25/18 17:00 114 H 100 10/25/18 16:41 98 H 99 10/25/18 16:36 99 H 99 10/25/18 16:31 98 H 99 10/25/18 16:26 95 H 98 10/25/18 16:21 94 H 99 10/25/18 16:16 93 H 99 10/25/18 16:11 99 H 99 10/25/18 16:06 97 H 100 10/25/18 16:04 36.9 C 96 H 20 120/77 10/25/18 14:38 94 H 130/74 10/25/18 14:33 37.1 C 20
--- NOTE | 2018-10-25 18:37 | Communication Note ---
Date of Service: October 25, 2018 remotely reviewed laboring patient's FHT monitoring strip and electronic chart. No changes to management at this time. FHT noted to have decelerations that occur spontaneously. Each one resolves back to a normal baseline with moderate variability and accels. Would not be a candidate for pitocin at this time but cervical change has been occurring so we are continuing with expectant management of labor and close observation of fetus. Continued nursing interventions for resuscitation with decels prn.
--- NOTE | 2018-10-25 18:55 | Labor Progress Brief Note ---
Date of Service October 25, 2018 Subjective Reason For Note: Routine Evaluation Has epidural. RN called MD to the room to ask for placement of an FSE, so that she could use knee-chest position to attempt to resolve variable decels. Assessment & Plan (1) 37 weeks gestation of : Continue spontaneous labor. Occasional variables with resolution to normal baseline and moderate variability. Try continued repositioning. Now tracing with FSE and external toco. Present on Admission?: Yes Physical Exam Genitourinary: Manual OB Exam: + cervical dilation 8 cm, + cervical effacement 100%, + station + 1 and + amniotic fluid clear OB Exam Monitor Tracing: + category II and + variable decelerations Results & Data Vital Signs (Past 12 Hours) Vital Signs Temp Pulse Resp BP Pulse Ox 10/25/18 18:50 115 H 100 10/25/18 18:45 101 H 100 10/25/18 18:40 97 H 100 10/25/18 18:38 100 H 153/74 H 10/25/18 18:35 105 H 100 10/25/18 18:30 112 H 22 151/93 H 100 10/25/18 18:25 102 H 100 10/25/18 18:23 99 H 143/88 H 10/25/18 18:20 103 H 100 10/25/18 18:15 98 H 100 10/25/18 18:10 93 H 100 10/25/18 18:09 93 H 145/82 H 10/25/18 18:05 89 99 10/25/18 18:00 36.9 C 99 H 20 99 10/25/18 17:55 97 H 99 10/25/18 17:53 98 H 111/56 L 10/25/18 17:50 99 H 99 10/25/18 17:45 99 H 100 10/25/18 17:40 98 H 119/64 99 10/25/18 17:35 218 H 125/68 100 10/25/18 17:30 109 H 20 117/65 99 10/25/18 17:25 101 H 108/57 L 99 10/25/18 17:23 112 H 105/60 10/25/18 17:21 100 H 104/59 L 10/25/18 17:20 120 H 20 99 10/25/18 17:19 108 H 105/58 L 10/25/18 17:17 103 H 111/59 L 10/25/18 17:15 106 H 111/59 L 100 10/25/18 17:13 101 H 112/59 L 10/25/18 17:11 109 H 20 106/62 10/25/18 17:10 102 H 99 10/25/18 17:09 108 H 102/57 L 10/25/18 17:08 22 10/25/18 17:07 100 H 103/64 10/25/18 17:05 98 H 99 10/25/18 17:00 114 H 100 10/25/18 16:41 98 H 99 10/25/18 16:36 99 H 99 10/25/18 16:31 98 H 99 10/25/18 16:26 95 H 98 10/25/18 16:21 94 H 99 10/25/18 16:16 93 H 99 10/25/18 16:11 99 H 99 10/25/18 16:06 97 H 100 10/25/18 16:04 36.9 C 96 H 20 120/77 10/25/18 14:38 94 H 130/74 10/25/18 14:33 37.1 C 20
--- NOTE | 2018-10-25 19:12 | Labor Progress Brief Note ---
Date of Service October 25, 2018 Subjective Comfortable with epidural Assessment & Plan (1) 37 weeks gestation of : FHT cat 2, progress occurring and not too long until delivery is expected; continue resuscitation measures prn, close observation. Present on Admission?: Yes Physical Exam Physical Exam: /+1 Clear fluid FHT decel to 60 and I came to room, helped reposition patient, rechecked cervix, and tones recovered to normal baseline. Good variability continues. Results & Data Vital Signs (Past 12 Hours) Vital Signs Temp Pulse Resp BP Pulse Ox 10/25/18 19:05 110 H 100 10/25/18 19:00 105 H 22 100 10/25/18 18:55 103 H 136/94 100 10/25/18 18:50 115 H 100 10/25/18 18:45 101 H 100 10/25/18 18:40 97 H 100 10/25/18 18:38 100 H 153/74 H 10/25/18 18:35 105 H 100 10/25/18 18:30 112 H 22 151/93 H 100 10/25/18 18:25 102 H 100 10/25/18 18:23 99 H 143/88 H 10/25/18 18:20 103 H 100 10/25/18 18:15 98 H 100 10/25/18 18:10 93 H 100 10/25/18 18:09 93 H 145/82 H 10/25/18 18:05 89 99 10/25/18 18:00 36.9 C 99 H 20 99 10/25/18 17:55 97 H 99 10/25/18 17:53 98 H 111/56 L 10/25/18 17:50 99 H 99 10/25/18 17:45 99 H 100 10/25/18 17:40 98 H 119/64 99 10/25/18 17:35 218 H 125/68 100 10/25/18 17:30 109 H 20 117/65 99 10/25/18 17:25 101 H 108/57 L 99 10/25/18 17:23 112 H 105/60 10/25/18 17:21 100 H 104/59 L 10/25/18 17:20 120 H 20 99 10/25/18 17:19 108 H 105/58 L 10/25/18 17:17 103 H 111/59 L 10/25/18 17:15 106 H 111/59 L 100 10/25/18 17:13 101 H 112/59 L 10/25/18 17:11 109 H 20 106/62 10/25/18 17:10 102 H 99 10/25/18 17:09 108 H 102/57 L 10/25/18 17:08 22 10/25/18 17:07 100 H 103/64 10/25/18 17:05 98 H 99 10/25/18 17:00 114 H 100 10/25/18 16:41 98 H 99 10/25/18 16:36 99 H 99 10/25/18 16:31 98 H 99 10/25/18 16:26 95 H 98 10/25/18 16:21 94 H 99 10/25/18 16:16 93 H 99 10/25/18 16:11 99 H 99 10/25/18 16:06 97 H 100 10/25/18 16:04 36.9 C 96 H 20 120/77 10/25/18 14:38 94 H 130/74 10/25/18 14:33 37.1 C 20
--- NOTE | 2018-10-25 20:32 | Delivery Summary ---
Vaginal Delivery Summary Date of Service October 25, 2018 Vaginal Delivery Summary PREOPERATIVE DIAGNOSES: 1. Cotto intrauterine at 37 gestation. 2. Spontaneous onset of labor. 3. Group B Streptococcus pos. PROCEDURE: Spontaneous vaginal delivery and repair of 1st laceration. SURGEON: Katy Glass MD. AIRPORT OPERATIONS SPECIALIST: None. ESTIMATED BLOOD LOSS: 300 mL. COMPLICATIONS: None. PLACENTA: Spontaneous and intact with a 3-vessel cord. DISPOSITION: Stable to labor and delivery. DESCRIPTION: The patient is a 33-year-old G2, P1, who presented with SROM at home followed by onset of painful contractions. She was managed expectantly and given an epidural for pain and PCN for GBS. She pushed well and brought the head to in OA position. The 's head was allowed to deliver with contraction force and no further active pushing, with the perineum protected during this time. The shoulders delivered easily with a maternal pushing effort. The shoulders and body delivered without any difficulty, and the infant was placed on the maternal abdomen. It was vigorous and moving all extremities, and making respiratory efforts. The cord was doubly clamped by the MD and then cut by the FOB. The placenta delivered spontaneously and was noted to be intact and with a 3VC. The cervix, vagina and perineum were examined and were found to have a first degree laceration which was repaired using 3-0 vicryl. The fundus was firm and lochia minimal immediately after delivery.
[2018-10-25] MEDS ORDERED: HYDROCORTISONE ACETATE 25 MG SUPP PR PRN (20:43)
[2018-10-25] MEDS ORDERED: SUPERCREAM 0.870% 15 GM JAR EXT PRN (20:43)
[2018-10-25] MEDS ORDERED: OXYCODONE/ACETAMINOPHEN 5mg/325mg TAB PO PRN (20:43)
[2018-10-25] MEDS ORDERED: DIPHTHERIA/TETANUS/PERTUSSIS 0.5 ML SYR/VIAL IM ONE (20:43)
[2018-10-25] MEDS ORDERED: ACETAMINOPHEN 325 MG TAB PO PRN (20:43)
[2018-10-25] MEDS ORDERED: LACTATED RINGER'S 1,000 ML IV SCH (20:45)
[2018-10-25] MEDS: IBUPROFEN 600 MG TAB PO PRN (21:24)
[2018-10-25] MEDS: BENZOCAINE 20% AER SPR 82.5 GM CAN EXT PRN (23:16)
[2018-10-25] MEDS: DOCUSATE SODIUM 100 MG CAP PO SCH (23:16)
--- NOTE | 2018-10-26 00:38 | Anesthesia Procedure Note ---
Date of Service October 26, 2018 Anesthesia Post Epidural Note Vital Signs Vital Signs: Temp Pulse Resp BP Pulse Ox 37.0 C 112 H 18 139/74 100 10/25/18 22:29 10/25/18 22:29 10/25/18 22:29 10/25/18 22:29 10/25/18 20:25 Pain Intensity Bilateral Abdomen: Pain Intensity: 3 Notes Mental Status: alert / awake / arousable Nausea / Vomiting: adequately controlled Pain: adequately controlled Airway Patency, RR, SpO2: stable & adequate BP & HR: stable & adequate Hydration State: stable & adequate Neuraxial Anesthesia: was administered and sensory block is resolving Anesthetic Complications: no major complications apparent and Pt Satisfied with anesthetic care Epidural: Removed without complications and With tip intact
--- NOTE | 2018-10-26 05:04 | Obstetrical Progress Note ---
Date of Service <Yousuf Anne MD - Last Filed: 10/26/18 07:19> October 26, 2018 Assessment & Plan <Yousuf Anne MD - Last Filed: 10/26/18 07:19> (1) Vaginal delivery: [33 y/o @ 37+0 s/p vaginal delivery complicated by gestational hypertension, GBS+, and obesity] -PPD#1 - GBS +, Blood Type A+ - Feels well today. Eating well, voiding well, ambulating well. - Pain well controlled. - Routine post care - After discharge will have [address] Glass. Present on Admission?: No Day #:: 1 Subjective <Yousuf Anne MD - Last Filed: 10/26/18 07:19> Ambulation: ambulating normally Voiding: no voiding problems Passing Gas:: Yes Diet Tolerance:: regular diet Lochia:: Moderate (as much as a heavy period) Current Pain Level(1-10): 3 (sharp) Baby is at [facility] and will require cardiac surgery for transposition of great veins AO and PA. Physical Exam <Yousuf Anne MD - Last Filed: 10/26/18 07:19> OB PE General: Alert, oriented. No acute distress. Cardiac: Regular rate and rhythm, no murmurs/rubs/gallops. Respiratory: Clear to auscultation anterior and posteriorly, no wheezes/rales/rhonchi. No increased work of breathing. Symmetrical chest rise. No respiratory distress. Abdomen: Soft, nontender, nondistended. Bowel sounds present. Uterus: Uterine fundus firm, palpable 1 cm above umbilicus. Lower Extremities: No lower extremity edema or swelling. No deep calf pain. Shari's negative bilaterally. OB ROS Denies fever, chills, sweats Denies shortness of breath, difficulty breathing, chest pain, palpitations, chest pressure. Denies breast pain. Denies dysuria. Denies headache. Results & Data <Yousuf Anne MD - Last Filed: 10/26/18 07:19> Vital Signs (Past 12 Hours) Vital Signs Temp Pulse Pulse Resp BP BP Pulse Ox 10/26/18 03:15 36.6 C 98 H 18 134/88 97 10/25/18 23:30 36.9 C 105 H 16 123/76 96 10/25/18 22:29 37.0 C 112 H 18 139/74 10/25/18 22:23 110 H 135/72 10/25/18 22:18 108 H 157/74 H 10/25/18 22:14 107 H 153/93 H 10/25/18 21:59 109 H 18 144/84 H 10/25/18 21:44 112 H 124/82 10/25/18 21:29 110 H 18 156/86 H 10/25/18 21:14 111 H 20 147/82 H 10/25/18 20:59 113 H 18 148/77 H 10/25/18 20:44 109 H 20 146/67 H 10/25/18 20:29 36.8 C 120 H 18 137/88 10/25/18 20:25 118 H 100 10/25/18 20:20 105 H 98 10/25/18 20:15 112 H 100 10/25/18 20:12 120 H 89 L 10/25/18 20:10 120 H 129/66 100 10/25/18 20:05 122 H 98 10/25/18 20:00 104 H 100 10/25/18 19:55 105 H 100 10/25/18 19:53 106 H 143/85 H 10/25/18 19:50 106 H 100 10/25/18 19:45 111 H 100 10/25/18 19:40 110 H 100 10/25/18 19:39 104 H 146/86 H 10/25/18 19:35 105 H 100 10/25/18 19:30 118 H 100 10/25/18 19:25 107 H 100 10/25/18 19:24 105 H 143/77 H 10/25/18 19:20 119 H 100 10/25/18 19:15 107 H 100 10/25/18 19:13 36.7 C 20 10/25/18 19:10 123 H 100 10/25/18 19:05 110 H 100 10/25/18 19:00 105 H 22 100 10/25/18 18:55 103 H 136/94 100 10/25/18 18:50 115 H 100 10/25/18 18:45 101 H 100 10/25/18 18:40 97 H 100 10/25/18 18:38 100 H 153/74 H 10/25/18 18:35 105 H 100 10/25/18 18:30 112 H 22 151/93 H 100 10/25/18 18:25 102 H 100 10/25/18 18:23 99 H 143/88 H 10/25/18 18:20 103 H 100 10/25/18 18:15 98 H 100 10/25/18 18:10 93 H 100 10/25/18 18:09 93 H 145/82 H 10/25/18 18:05 89 99 10/25/18 18:00 36.9 C 99 H 20 99 10/25/18 17:55 97 H 99 10/25/18 17:53 98 H 111/56 L 10/25/18 17:50 99 H 99 10/25/18 17:45 99 H 100 10/25/18 17:40 98 H 119/64 99 10/25/18 17:35 218 H 125/68 100 10/25/18 17:30 109 H 20 117/65 99 10/25/18 17:25 101 H 108/57 L 99 10/25/18 17:23 112 H 105/60 10/25/18 17:21 100 H 104/59 L 10/25/18 17:20 120 H 20 99 10/25/18 17:19 108 H 105/58 L 10/25/18 17:17 103 H 111/59 L 10/25/18 17:15 106 H 111/59 L 100 10/25/18 17:13 101 H 112/59 L 10/25/18 17:11 109 H 20 106/62 10/25/18 17:10 102 H 99 10/25/18 17:09 108 H 102/57 L 10/25/18 17:08 22 10/25/18 17:07 100 H 103/64 10/25/18 17:05 98 H 99 <Ktay Glass MD - Last Filed: 10/26/18 06:57> Co-Signing Physician Notes dc to be with baby today.
[2018-10-26] MEDS: IBUPROFEN 600 MG TAB PO PRN (06:34)
[2018-10-26 07:15] LABS: Hematocrit (blood only) 34.3 % (37-47); Mean Corpuscular Volume 85.5 fL (80-100); Mean Platelet Volume 9.3 fL (7.4-10.4); Platelet Count 161 K/uL (130-400); RDW Coefficient of Variation 13.5 % (11.5-14.5); Red Blood Count 4.01 M/uL (4.2-5.4); White Blood Count 18.52 K/uL (4.8-10.8)
[2018-10-26] MEDS ORDERED: PRENATAL VITAMIN 1 TAB PO SCH (08:00)
[2018-10-26] MEDS: DOCUSATE SODIUM 100 MG CAP PO SCH (08:07)
[2018-10-26] MEDS: BENZOCAINE 20% AER SPR 82.5 GM CAN EXT PRN (08:20)
== END 2018-10-26 09:00 | disposition home or self-care (01) | DRG 806 ==
LOC: OPB 14:22 → 4S1 14:23 → 4S2 23:22